=== PATIENT | female | born 1935 | race Two or more races ===

== ENCOUNTER → 2016-07-24 | Outpatient (CLI) | payer OTHER | LOC: BRMIMAGING 10:37 | DX: Z12.31 Encounter for screening mammogram for malignant neoplasm of breast (principal) | CPT/HCPCS: G0202 ==

== ENCOUNTER → 2017-07-28 | Outpatient (CLI) | payer OTHER | LOC: BRMIMAGING 08:20 | PROVIDERS: ATTEND Family Medicine | DX: Z12.31 Encounter for screening mammogram for malignant neoplasm of breast (principal) ==

== ENCOUNTER → 2018-09-15 | Outpatient (CLI) | payer OTHER | LOC: BRMIMAGING 08:08 | PROVIDERS: ATTEND Radiology Radiation Oncology | DX: Z12.31 Encounter for screening mammogram for malignant neoplasm of breast (principal) ==